=== PATIENT | female | born 1960 | race Two or more races ===

== ENCOUNTER 2021-09-01 10:00 | Outpatient (CLI) | payer OTHER | END 2021-09-01 10:01 | disposition home or self-care (01) | LOC: NUCLEAR 10:00 | PROVIDERS: ATTEND Orthopaedic Surgery | DX: M81.0 Age-related osteoporosis without current pathological fracture (principal) ==

== ENCOUNTER 2022-06-03 07:30 | Outpatient (CLI) | payer OTHER | END 2022-06-03 07:41 | disposition home or self-care (01) | LOC: NUCLEAR 07:30 | PROVIDERS: ATTEND Specialist | DX: R91.1 Solitary pulmonary nodule (principal); Z87.891 Personal history of nicotine dependence | CPT/HCPCS: 78815; A9552 ==